=== PATIENT | female | born 1940 | race Hispanic/Latino ===

== ENCOUNTER → 2017-10-11 | Outpatient (CLI) | payer OTHER, MEDICARE | END | disposition home or self-care (01) | LOC: OIH 12:57 | PROVIDERS: ATTEND Family Medicine | DX: M47.895 Other spondylosis, thoracolumbar region (principal) | CPT/HCPCS: 74018 ==

== ENCOUNTER → 2018-02-19 | Outpatient (CLI) | payer OTHER, MEDICARE | END | disposition home or self-care (01) | LOC: RAH 07:54 | PROVIDERS: ATTEND Internal Medicine Gastroenterology | DX: K22.4 Dyskinesia of esophagus (principal); K76.0 Fatty (change of) liver, not elsewhere classified; K21.9 Gastro-esophageal reflux disease without esophagitis; I10 Essential (primary) hypertension | CPT/HCPCS: 74240; 76700 ==

== ENCOUNTER → 2018-06-20 | Outpatient (CLI) | payer OTHER, MEDICARE | END | disposition home or self-care (01) | LOC: OIH 10:19 | PROVIDERS: ATTEND Family Medicine | DX: R05 Cough (principal); R06.02 Shortness of breath; M47.815 Spondylosis without myelopathy or radiculopathy, thoracolumbar region | CPT/HCPCS: 71046 ==

== ENCOUNTER 2018-06-24 17:17 | Emergency (ER) | payer OTHER, MEDICAID ==
[2018-06-24] MEDS ORDERED: ONDANSETRON HCL 4 MG/2 ML VIAL ONE (18:16)
[2018-06-24] MEDS ORDERED: MORPHINE SULFATE 4 MG/1ML SYG ONE (18:16)
[2018-06-24 18:17] LABS: BASOPHILS % (AUTO) 0.7 % (0.0-5.0); EOSINOPHILS % (AUTO) 0.8 % (0.0-8.0); HEMATOCRIT 44.6 % (36-48); LYMPHOCYTES % (AUTO) 11.9 % (21.0-51.0); MEAN CORPUSCULAR HEMOGLOBIN 30.5 pg (27.0-33.0); MEAN CORPUSCULAR HGB CONC 33.1 g/dL (32.0-36.0); MEAN CORPUSCULAR VOLUME 91.9 fL (79-99); MONOCYTES % (AUTO) 9.5 % (3.0-13.0); NEUTROPHILS % (AUTO) 77.1 % (40.0-77.0); PLATELET COUNT (AUTO) 166 K/uL (130-400); RED BLOOD CELL COUNT(AUTO) 4.85 MIL/uL (4.00-5.50); RED CELL DISTRIBUTION WIDTH 13.2 % (11.0-15.5); WHITE BLOOD COUNT (AUTO) 10.3 K/uL (4.8-10.8)
[2018-06-24 18:17] LABS: APPEARANCE,URINE CLEAR (CLEAR); BILIRUBIN,URINE SMALL (NEGATIVE); COLOR,URINE YELLOW (YELLOW); GLUCOSE, URINE (UA) NEGATIVE (NEGATIVE); KETONES,URINE 15 mg/dL (NEGATIVE); LEUKOCYTE ESTERASE ,URINE NEGATIVE (NEGATIVE); NITRATE,URINE NEGATIVE (NEGATIVE); OCCULT BLOOD,URINE MODERATE (NEGATIVE); PH,URINE 5.5 (5.0-8.0); PROTEIN,URINE 30 (NEGATIVE)
[2018-06-24 18:30] LABS: CREATININE 0.8 mg/dL (0.5-1.5); POTASSIUM 3.6 mmol/L (3.5-5.1)
[2018-06-24 18:34] LABS: ALBUMIN 3.8 g/dL (3.5-5.0); BILIRUBIN,TOTAL 0.3 mg/dL (0.2-1.0); TOTAL PROTEIN, SERUM 7.5 g/dL (6.0-8.3)
[2018-06-24 18:55] LABS: RBC,URINE 0-1 /HPF (0-1); WBC,URINE 0-1 /HPF (0-1)
[2018-06-24 18:56] LABS: BACTERIA,URINE Few /HPF (None Seen); MUCUS,URINE Rare LPF (None Seen); SQUAMOUS EPITHELIAL CELL,UR Few /HPF (0-2)
== END 2018-06-24 20:23 | disposition home or self-care (01) ==
LOC: EDH 17:17
DX: R10.84 Generalized abdominal pain (principal); R19.7 Diarrhea, unspecified; R11.2 Nausea with vomiting, unspecified; J45.909 Unspecified asthma, uncomplicated; K29.00 Acute gastritis without bleeding; M19.90 Unspecified osteoarthritis, unspecified site
CPT/HCPCS: 36415; 74176; 80053; 81001; 83690; 85025; 96374; 96375; 99284; J2270; J2405

== ENCOUNTER → 2018-07-23 | Outpatient (CLI) | payer OTHER, MEDICARE | END | disposition home or self-care (01) | LOC: RAH 08:55 | PROVIDERS: ATTEND Family Medicine | DX: I35.1 Nonrheumatic aortic (valve) insufficiency (principal); I70.0 Atherosclerosis of aorta; R79.89 Other specified abnormal findings of blood chemistry | CPT/HCPCS: 93306 ==

== ENCOUNTER → 2018-10-18 | Outpatient (CLI) | payer OTHER, MEDICARE | END | disposition home or self-care (01) | LOC: OIH 10:15 | PROVIDERS: ATTEND Family Medicine | DX: M17.12 Unilateral primary osteoarthritis, left knee (principal); M11.262 Other chondrocalcinosis, left knee; M25.521 Pain in right elbow | CPT/HCPCS: 73080; 73562 ==

== ENCOUNTER → 2019-01-09 | Outpatient (CLI) | payer OTHER, MEDICARE | END | disposition home or self-care (01) | LOC: OIH 08:18 | PROVIDERS: ATTEND Family Medicine | DX: M25.571 Pain in right ankle and joints of right foot (principal) | CPT/HCPCS: 73610 ==

== ENCOUNTER → 2019-10-08 | Outpatient (CLI) | payer OTHER, MEDICARE | END | disposition home or self-care (01) | LOC: RAH 10:41 | PROVIDERS: ATTEND Family Medicine | DX: R35.0 Frequency of micturition (principal); N39.0 Urinary tract infection, site not specified | CPT/HCPCS: 76770 ==

== ENCOUNTER → 2019-12-26 | Outpatient (CLI) | payer OTHER, MEDICARE | END | disposition home or self-care (01) | LOC: SHCH 15:19 | PROVIDERS: ATTEND Internal Medicine Cardiovascular Disease | DX: R94.31 Abnormal electrocardiogram [ECG] [EKG] (principal); R06.00 Dyspnea, unspecified | CPT/HCPCS: 93306 ==

== ENCOUNTER → 2020-01-09 | Outpatient (CLI) | payer OTHER, MEDICARE | END | disposition home or self-care (01) | LOC: SHCH 14:55 | PROVIDERS: ATTEND Internal Medicine Cardiovascular Disease | DX: I83.813 Varicose veins of bilateral lower extremities with pain (principal); R93.6 Abnormal findings on diagnostic imaging of limbs | CPT/HCPCS: 93970 ==

== ENCOUNTER → 2022-05-17 | Outpatient (CLI) | payer OTHER, MEDICARE ==
[~2022-05-17] MED LIST: IOHEXOL-350 50ML VIAL IV ONE
== END | disposition home or self-care (01) ==
LOC: RAH 07:57
PROVIDERS: ATTEND Family Medicine
DX: G31.9 Degenerative disease of nervous system, unspecified (principal); R42 Dizziness and giddiness
CPT/HCPCS: 70470; Q9967

== ENCOUNTER 2022-07-29 12:54 | Observation (INO) | payer OTHER, MEDICARE ==
[~2022-07-29] VITALS: Ht 152.4 cm; Wt 72.8 kg
[2022-07-29 15:02] LABS: BASOPHILS % (AUTO) 0.2 % (0.0-5.0); EOSINOPHILS % (AUTO) 0.1 % (0.0-8.0); LYMPHOCYTES % (AUTO) 8.3 % (21.0-51.0); MEAN CORPUSCULAR HEMOGLOBIN 29.9 pg (27.0-33.0); MEAN CORPUSCULAR HGB CONC 32.3 g/dL (32.0-36.0); MEAN CORPUSCULAR VOLUME 92.8 fL (79-99); MONOCYTES % (AUTO) 14.9 % (3.0-13.0); NEUTROPHILS % (AUTO) 75.8 % (40.0-77.0); PLATELET COUNT (AUTO) 175 K/uL (130-400); RED BLOOD CELL COUNT(AUTO) 4.31 MIL/uL (4.00-5.50); RED CELL DISTRIBUTION WIDTH 13.2 % (11.0-15.5); WHITE BLOOD COUNT (AUTO) 8.9 K/uL (4.8-10.8)
[2022-07-29 15:14] LABS: ALBUMIN 3.2 g/dL (3.5-5.0); CREATININE 0.7 mg/dL (0.5-1.5); POTASSIUM 3.5 mmol/L (3.5-5.1); TOTAL PROTEIN, SERUM 6.3 g/dL (6.0-8.3)
[2022-07-29] MEDS ORDERED: IPRATROPIUM/ALBUTEROL SULFATE 3 ML SOLUTION IH PRN (16:00)
[2022-07-29] MEDS ORDERED: DOCUSATE SODIUM 100 MG CAP PO PRN (16:00)
[2022-07-29] MEDS ORDERED: ACETAMINOPHEN 325 MG TAB PO PRN (16:00)
[2022-07-29] MEDS ORDERED: LACTULOSE 20 GM/30 ML UDCUP PO PRN (16:00)
[2022-07-29] MEDS ORDERED: ONDANSETRON 4MG INJ IVP PRN (16:00)
[2022-07-29] MEDS ORDERED: HYDRALAZINE 20MG/ML VIAL IV PRN (16:00)
[2022-07-29] MEDS ORDERED: ACETAMINOPHEN 325 MG TAB ONE (17:56)
[2022-07-29] MEDS ORDERED: ACETAMINOPHEN 500 MG TABLET PO PRN (19:30)
[2022-07-29] MEDS: LACTATED RINGERS 1000ML 1,000 ML IV SCH (19:30)
[2022-07-29 20:31] LABS: APPEARANCE,URINE CLEAR (CLEAR); BILIRUBIN,URINE NEGATIVE (NEGATIVE); COLOR,URINE LIGHT-YELLOW (YELLOW); GLUCOSE, URINE (UA) NEGATIVE (NEGATIVE); KETONES,URINE NEGATIVE (NEGATIVE); LEUKOCYTE ESTERASE ,URINE NEGATIVE Leu/uL (NEGATIVE); NITRATE,URINE 2+ (NEGATIVE); PH,URINE 7.5 (5.0-8.0); PROTEIN,URINE 20 mg/dL (NEGATIVE); UROBILINOGEN,URINE 0.2 mg/dL (0.2-1.0)
[2022-07-29 20:44] LABS: BACTERIA,URINE FEW /HPF (None Seen); MUCUS,URINE RARE LPF (None Seen); SQUAMOUS EPITHELIAL CELL,UR FEW /HPF (0-2)
[2022-07-30 00:30] VITALS: BP 175/77
[2022-07-30] MEDS ORDERED: FLUO20CA36 PO (00:53)
[2022-07-30] MEDS ORDERED: MONT-39 PO (00:53)
[2022-07-30] MEDS ORDERED: LEVO88CA4 PO (00:53)
[2022-07-30] MEDS ORDERED: LEVO88TA7 PO (00:53)
[2022-07-30 01:17] LABS: CREATINE KINASE, TOTAL 105 U/L (21-232); MYOGLOBIN 33 ng/mL (10-92)
[2022-07-30 04:00] VITALS: BP 163/70
[2022-07-30 05:26] LABS: HEMATOCRIT 38.5 % (36-48); MEAN CORPUSCULAR HEMOGLOBIN 30.4 pg (27.0-33.0); MEAN CORPUSCULAR HGB CONC 32.7 g/dL (32.0-36.0); RED BLOOD CELL COUNT(AUTO) 4.14 MIL/uL (4.00-5.50); WHITE BLOOD COUNT (AUTO) 8.4 K/uL (4.8-10.8)
[2022-07-30 06:01] LABS: CREATININE 0.6 mg/dL (0.5-1.5); MAGNESIUM 1.9 mg/dL (1.80-2.40); PHOSPHORUS 2.8 mg/dL (2.5-4.9); POTASSIUM 3.4 mmol/L (3.5-5.1); THYROID STIMULATING HORMONE 0.41 uIU/mL (0.36-3.74)
[2022-07-30 08:00] VITALS: BP 145/68
[2022-07-30] MEDS: LACTATED RINGERS 1000ML 1,000 ML IV SCH (08:37)
[2022-07-30] MEDS ORDERED: ENOXAPARIN SODIUM 30 MG/0.3 ML SQ SCH (09:00)
[2022-07-30] MEDS ORDERED: ASCORBIC ACID 500 MG TAB PO SCH (09:00)
[2022-07-30] MEDS ORDERED: PANTOPRAZOLE 40 MG TAB DR PO SCH (09:00)
[2022-07-30] MEDS ORDERED: FOLIC ACID 1 MG TABLET PO SCH (09:00)
== END 2022-07-30 10:15 | disposition left against medical advice (07) ==
LOC: EDH 12:54 → EDHIP 19:02 → 3AH 22:26
PROVIDERS: ADMIT Internal Medicine Critical Care Medicine; ATTEND Internal Medicine Critical Care Medicine
DX: U07.1 COVID-19 (principal); J45.909 Unspecified asthma, uncomplicated; I51.7 Cardiomegaly; I10 Essential (primary) hypertension; E78.5 Hyperlipidemia, unspecified; E78.00 Pure hypercholesterolemia, unspecified; Z79.899 Other long term (current) drug therapy
CPT/HCPCS: 96360; 96361 ×2; 99285; 82550 ×6; 83735 ×2; 83874 ×6; 84484 ×7; 80053; 85025; 87077; 87088; 87186; 87804 ×2; 81001; 36415 ×2; 87635; 71045; 93005; 96372; 84443; 84100; 80061; 80048; 83880; 85027; G0378 ×15; C9803; J1650

== ENCOUNTER → 2023-01-16 | Outpatient (CLI) | payer OTHER, MEDICARE ==
[~2023-01-16] MED LIST changes: +FLUO20CA36 PO; -IOHEXOL-350 50ML VIAL IV ONE; +LEVO88CA4 PO; +LEVO88TA7 PO; +MONT-39 PO
[2023-01-16 12:23] LABS: CREATININE 0.6 mg/dL (0.5-1.5)
== END | disposition home or self-care (01) ==
LOC: LAB 08:08
PROVIDERS: ATTEND Internal Medicine Cardiovascular Disease
DX: I11.0 Hypertensive heart disease with heart failure (principal); I50.32 Chronic diastolic (congestive) heart failure
CPT/HCPCS: 36415; 80048; 83880

== ENCOUNTER → 2023-07-10 | Outpatient (CLI) | payer OTHER, MEDICARE ==
[2023-07-10 15:28] LABS: BASOPHILS # (AUTO) 0.04 K/uL (0.00-0.20); BASOPHILS % (AUTO) 0.4 % (0.0-5.0); EOSINOPHILS # (AUTO) 0.03 K/uL (0.00-0.70); EOSINOPHILS % (AUTO) 0.3 % (0.0-8.0); HEMATOCRIT 41.1 % (36-48); IMMATURE GRANULOCYTE ABSOLUTE 0.11 K/uL (0-1); LYMPHOCYTES # (AUTO) 1.1 K/uL (1.0-4.8); LYMPHOCYTES % (AUTO) 12.5 % (21.0-51.0); MEAN CORPUSCULAR HEMOGLOBIN 31.5 pg (27.0-33.0); MEAN CORPUSCULAR HGB CONC 32.1 g/dL (32.0-36.0); MEAN CORPUSCULAR VOLUME 98.1 fL (79-99); MONOCYTES # (AUTO) 0.9 K/uL (0.1-1.0); MONOCYTES % (AUTO) 9.7 % (3.0-13.0); NEUTROPHILS # (AUTO) 6.8 K/uL (1.8-7.7); NEUTROPHILS % (AUTO) 75.9 % (40.0-77.0); PLATELET COUNT (AUTO) 207 K/uL (130-400); RED BLOOD CELL COUNT(AUTO) 4.19 MIL/uL (4.00-5.50); RED CELL DISTRIBUTION WIDTH 12.6 % (11.0-15.5)
[2023-07-10 15:36] LABS: CREATININE 0.8 mg/dL (0.5-1.5); POTASSIUM 4.1 mmol/L (3.5-5.1)
== END | disposition home or self-care (01) ==
LOC: LAB 14:56
PROVIDERS: ATTEND Urology
DX: R31.29 Other microscopic hematuria (principal); N39.0 Urinary tract infection, site not specified; N13.39 Other hydronephrosis
CPT/HCPCS: 36415; 80048; 85025

== ENCOUNTER → 2023-08-01 | Outpatient (CLI) | payer OTHER, MEDICARE ==
[~2023-08-01] MED LIST changes: +IOHEXOL 350 MG/ML 100ML INFUS..BTL IV ONE
== END | disposition home or self-care (01) ==
LOC: RAH 08:12
PROVIDERS: ATTEND Urology
DX: K76.89 Other specified diseases of liver (principal); N39.0 Urinary tract infection, site not specified; N13.39 Other hydronephrosis; R31.29 Other microscopic hematuria; N83.292 Other ovarian cyst, left side
CPT/HCPCS: 74178; Q9967

== ENCOUNTER 2025-02-04 15:20 | Emergency (ER) | payer OTHER, MEDICAID ==
[~2025-02-04] VITALS: Ht 154.9 cm; Wt 70.3 kg
[~2025-02-04 15:20] MED LIST changes: +FLUO-418 PO; -FLUO20CA36 PO; -IOHEXOL 350 MG/ML 100ML INFUS..BTL IV ONE; -LEVO88CA4 PO; +LEVO88CA5 PO
[2025-02-04 16:03] LABS: NUCLEATED RED BLOOD CELLS 0.0 % (0.0-0.19); PLATELET COUNT (AUTO) 246.0 K/uL (130-400); RED BLOOD CELL COUNT(AUTO) 4.39 MIL/uL (4.00-5.50); RED CELL DISTRIBUTION WIDTH 13.4 % (11.0-15.5); WHITE BLOOD COUNT (AUTO) 11.7 K/uL (4.8-10.8)
[2025-02-04 16:12] LABS: CREATININE 0.5 mg/dL (0.5-1.0); GLOMERULAR FILTR. RATE CALC 91.0 mL/min (>90); GLUCOSE,RANDOM 116.0 mg/dL (70-105); SODIUM SERUM 133.0 mmol/L (136-145); UREA NITROGEN, BLOOD 8.0 mg/dL (7-18)
--- NOTE | 2025-02-04 16:18 | ERN ---
General Chief Complaint: Back Pain or Injury Stated Complaint: BACK PAIN RADIATING TO LT RIB CAGE Time Seen by MD: 15:22 Source: family History of Present Illness Initial Comments This patient is an 84-year-old female who presented to the ED with complaint of back pain, chest pain as well as left lower rib pain. History was given by her attendant due to language barrier. Patient starting having back pain a week ago and it has been constant in intensity. She complained of increase in pain severity with deep breathing. Timing/Duration: 1 week Associated Symptoms: chest pain Allergies: Coded Allergies: No Known Allergies (Unverified Allergy, Unknown, 02/08/19) Home Meds Reported Medications Fluoxetine HCl (Fluoxetine HCl) 20 Mg Capsule, 20 MG PO DAILY, CAP 07/30/22 Levothyroxine Sodium (Levothyroxine Sodium) 88 Mcg Tablet, 88 MCG PO AM, TAB 07/30/22 Levothyroxine Sodium (Levothyroxine) 88 Mcg Capsule, 88 MCG PO AM, CAP 07/30/22 Montelukast Sodium (Montelukast Sodium) 10 Mg Tablet, 10 MG PO HS, TAB 07/30/22 Past Medical History Past Medical History: Asthma, GERD, Hypertension, Hypothyroid, IBS Past Surgical History: Surgical History Other: ABD HERNIA REPAIR Constitutional: (-) chills, (-) diaphoresis, (-) fever, (-) malaise, (-) weakness, (-) other documentation Respiratory: (-) cough, (-) orthopnea, (-) short of breath, (-) stridor, (-) wheezing, (-) other documentation Cardiovascular: (+) chest pain, (+) dyspnea on exertion Gastrointestinal/Abdominal: (-) nausea, (-) vomiting, (-) diarrhea, (-) abdominal pain, (-) abdominal distention, (-) constipation, (-) rectal bleeding, (-) dark stool/melena, (-) other documentation Musculoskeletal: (-) Neck pain, (-) back pain, (-) Flank Pain, (-) joint pain, (-) joint swelling, (-) muscle pain, (-) muscle stiffness, (-) gout, (-) other documentation Skin: (+) other documentation (varicose veins in lower extremities) Review of Systems: was completed, & the rest were negative. Nurses Notes Reviewed: Yes Physical Exam General Appearance: (+) no apparent distress Orientation: (+) alert, (+) oriented x 3 Head/Face Trauma: No Ear, Nose, Throat: (+) hearing grossly normal, (+) normal ENT inspection, (+) moist mucous membraine Neck: (+) normal inspection, (+) supple, (+) full range of motion, (+) non- tender Respiratory: (+) chest non-tender Heart: (+) regular Vascular: (+) varicose vein Gastrointestinal: (+) soft, (+) non-tender Extremities: (+) normal range of motion, (+) non-tender, (+) normal inspection Neurologic/Psychiatric: (+) normal speech, (+) no motor defecits, (+) no sensory deficits Results Laboratory and Microbiology Lab and Micro Result Laboratory Tests Test 02/04/25 15:58 White Blood Count 11.7 K/uL (4.8-10.8) H Red Blood Count 4.39 MIL/uL (4.00-5.50) Hemoglobin 13.4 g/dL (12.0-16.0) Hematocrit 40.0 % (36-48) Mean Corpuscular Volume 91.1 fL (79-99) Mean Corpuscular Hemoglobin 30.5 pg (27.0-33.0) Mean Corpuscular Hemoglobin Concent 33.5 g/dL (32.0-36.0) Red Cell Distribution Width 13.4 % (11.0-15.5) Platelet Count 246 K/uL (130-400) Mean Platelet Volume 10.2 fL (7.5-10.5) Nucleated Red Blood Cells 0.0 % (0.0-0.19) Sodium Level 133 mmol/L (136-145) L Potassium Level 4.1 mmol/L (3.5-5.1) Chloride Level 99 mmol/L (101-111) L Carbon Dioxide Level 27 mmol/L (21-32) Blood Urea Nitrogen 8 mg/dL (7-18) Creatinine 0.5 mg/dL (0.5-1.0) Glomerular Filtration Rate Calc 91 mL/min (>90) Random Glucose 116 mg/dL (70-105) H Total Calcium 8.2 mg/dL (8.5-10.1) L Total Bilirubin 0.5 mg/dL (0.2-1.0) Direct Bilirubin 0.2 mg/dL (0.0-0.3) Aspartate Amino Transf (AST/SGOT) 23 U/L (10-37) Alanine Aminotransferase (ALT/SGPT) 24 U/L (12-78) Alkaline Phosphatase 114 U/L (50-136) Total Creatine Kinase 74 U/L (21-232) # Troponin I High Sensitivity 45 ng/L (4-50) B-Type Natriuretic Peptide 377 pg/mL (0-100) H Total Protein 6.9 g/dL (6.0-8.3) Albumin 3.4 g/dL (3.5-5.0) L Labs Reviewed?: Yes EKG/XRAY/US/CT/MRI EKG Comment 02/04/2025 15:57:35 Rate 85. Sinus rhythm MI 143 QT 395 [place]: P 6, QRS 10, T 50 CT Scan Comment REASON: Chest pain with Hx of bronchitis and rib fracture. ORDERING PHYSICIAN: TIMOTHY PLAZA MD PROCEDURE: CHEST WO - CT CHEST W/O CONTRAST EXAMINATION: CT Chest without intravenous contrast CLINICAL HISTORY: Patient presents with chest pain and a history of bronchitis and rib fracture. TECHNIQUE: Axial CT of the chest without intravenous contrast. Multiplanar reformations were generated and reviewed. COMPARISON: CT chest dated August 08, 2012 and chest radiograph dated February 04, 2025. FINDINGS: LUNGS: Bibasilar dependent atelectasis. No pulmonary mass. The lungs are otherwise clear. PLEURAL SPACES: No pneumothorax. No pleural effusion. CARDIOVASCULAR: Mild cardiomegaly. No significant pericardial effusion. LYMPH NODES: Enlarged precarinal lymph node measuring 2.3 cm. Few subcentimeter calcified precarinal and right hilar lymph nodes, largest measuring 0.7 cm in the precarinal region. UPPER ABDOMEN: The upper abdominal solid organs are unremarkable. BONES: Old healed fractures of the right seventh rib (series 3, images 41-43) and eighth rib (series 3, image 49). No acute osseous abnormality. DIAPHRAGM: Elevated left hemidiaphragm. IMPRESSION: Enlarged precarinal lymph node measuring 2.3 cm. Few calcified subcentimeter precarinal and right hilar lymph nodes. Elevated left hemidiaphragm. Mild cardiomegaly. Bibasilar dependent atelectasis. Old healed right seventh and eighth rib fractures. No acute intrathoracic abnormality.d /[place] DICTATED BY: KRIS ROBLES MD DATE: 02/04/252007 ELECTRONICALLY SIGNED BY: KRIS ROBLES MD DATE: 02/04/252007 MDM MDM: Differential diagnosis: Shortness of breath, rib pain, Rationale: Tests considered and ordered secondary to shared decision making include: Previous outside records reviewed: Old ER visits. Risk of complication and/or morbidity or mortality of patient management: None Medications-Per medication reconciliation Need for hospitalization: Patient does not meet criteria for hospitalization. Need for emergency major/minor surgery: No There are no social concerns with this patient. Prescription drug management Prescriptions will include symptomatic care Patient's prior external medical records from other ER visits were reviewed by me as indicated. Prior testing and results from previous visits were reviewed. Prior tests were taken into account with medical decision making and resource utilization, independent historian/historians were used to obtain complete medical history. I independently interpreted the test that were performed, results were reviewed by me and considered findings on radiology if ordered. Medical management and examination interpretation discussions were had by me with other qualified healthcare professionals as indicated for the patient's care. ED Course Orders Procedure Category Date Status Time Cbc Without LAB 02/04/25 Complete Differential 15:45 Basic Metabolic Panel LAB 02/04/25 Complete 15:45 Hepatic Function Panel LAB 02/04/25 Complete 15:45 Troponin I High LAB 02/04/25 Complete Sensitivity 15:45 Creatine Kinase, Total LAB 02/04/25 Complete 15:45 B-Type Natriuretic LAB 02/04/25 Complete Peptide 15:45 Chest 2vws RAD 02/04/25 Resulted 15:45 12 Lead Ekg Tracing- EKG 02/04/25 Complete Technical 15:45 Ondansetron 4mg Inj PHA 02/04/25 Complete (Zofran 4mg Inj) 16:00 Ipratropium/Albuterol PHA 02/04/25 Complete Neb (Duoneb) 17:00 Respiratory RT 02/04/25 Transmitted Communication 16:31 Ct Chest W/O Contrast CT 02/04/25 Resulted 17:01 Ketorolac PHA 02/04/25 Complete Tromethamine 30mg/Ml 20:00 Current Medications Medications (Trade) Dose Ordered Sig/Romaine Route PRN Reason Start Time Stop Time Status Last Admin Dose Admin Albuterol (DUOneb) 1 UDVIAL ONCE ONCE IH 02/04/25 17:00 02/04/25 17:01 DC 02/04/25 16:53 Ketorolac Tromethamine (toRADol) 30 mg ONCE ONCE IM 02/04/25 20:00 02/04/25 20:01 DC 02/04/25 19:47 Ondansetron HCl (zoFRAN 4MG INJ) 4 mg ONCE ONCE IVP 02/04/25 16:00 02/04/25 16:01 DC Vital Signs Date Time Temp Pulse Resp B/P (MAP) Pulse Ox O2 Delivery O2 Flow Rate FiO2 02/04/25 19:52 98.4 86 18 164/75 98 Room Air* 0 21 02/04/25 16:54 83 20 02/04/25 15:25 97.9 80 18 189/78 97 Room Air 0 DX & DISP Disposition: Discharge Departure Impression: Primary Impression: Musculoskeletal pain Additional Impression: 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 The patient is now being discharged to home and should follow up with the primary care physician or the specialist as directed by the ER staff. Follow-up with primary care provider in 1 to 2 days. Take medications as directed here in the emergency room. Okay to continue home medications unless otherwise discussed during your visit in the emergency room today. Return to your nearest emergency room if symptoms worsen or if there is no improvement. Call 911 if you need immediate assistance. Take Tylenol or Motrin [id number] as needed and if no contraindications are present. Increase oral hydration. A wound culture or urine culture was ordered here in the emergency room department please follow-up with primary care provider and advise them to get repeat ports from our facility. If you had any Jeet wrap/splints that were applied here, please do not remove them until you see your primary care or specialty. Referrals: SHANT ABDI MD (PCP) TIMOTHY PLAZA MD Feb 04, 2025 16:18 SAUL JACKSON MD Feb 04, 2025 19:00 KULDIP AU MD Feb 04, 2025 19:37
[2025-02-04 16:21] LABS: ASPARTATE AMINOTRANSFERASE 23.0 U/L (10-37); CREATINE KINASE, TOTAL 74.0 U/L (21-232); TOTAL PROTEIN, SERUM 6.9 g/dL (6.0-8.3)
[2025-02-04 16:54] VITALS: PULSE 83; RESP 20
--- NOTE | 2025-02-04 17:27 | HMCIMG ---
EXAM: CR Chest, 2 View. CLINICAL HISTORY: Pleuritic chest pain with Hx of bronchitis COMPARISON: None provided. FINDINGS: LUNGS: No active infiltrate Increased central lung markings consistent with patient's history of bronchitis PLEURAL SPACES: No evidence of pleural effusion or pneumothorax. MEDIASTINUM: Cardiac silhouette is prominent BONES: No acute osseous abnormality. IMPRESSION: 1. Cardiac silhouette is prominent 2. No active infiltrate 3. Increased central lung markings consistent with patient's history of bronchitis /[place]
--- NOTE | 2025-02-04 18:48 | EKG ---
[facility] Test Date: 2025-02-04 Test Time: 15:57:35 Pat Name: SUNDEEP MONTERO Department: ED Room: Gender: F [employer]oter: [id number] : 1940 Requested By: TIMOTHY ANGULO Order Number: [id number] Reading MD: Robert Cardenas Measurements Intervals [place] Rate: 85 P: 6 [place]: 143 QRS: 10 QRSD: 73 T: 50 QT: 395 QTc: 469 Interpretive Statements Sinus rhythm Compared to ECG 07/29/2022 13:27:18 No significant changes Electronically Signed On 02-05-2025 15:34:53 CDT by Robert Cardenas Please click the below link to view image of tracing.
--- NOTE | 2025-02-04 18:53 | NUR ---
PT MOVED FROM LOBBY INTO FAST TRACK AT THIS TIME
--- NOTE | 2025-02-04 19:09 | HMCIMG ---
EXAMINATION: CT Chest without intravenous contrast CLINICAL HISTORY: Patient presents with chest pain and a history of bronchitis and rib fracture. TECHNIQUE: Axial CT of the chest without intravenous contrast. Multiplanar reformations were generated and reviewed. COMPARISON: CT chest dated August 08, 2012 and chest radiograph dated February 04, 2025. FINDINGS: LUNGS: Bibasilar dependent atelectasis. No pulmonary mass. The lungs are otherwise clear. PLEURAL SPACES: No pneumothorax. No pleural effusion. CARDIOVASCULAR: Mild cardiomegaly. No significant pericardial effusion. LYMPH NODES: Enlarged precarinal lymph node measuring 2.3 cm. Few subcentimeter calcified precarinal and right hilar lymph nodes, largest measuring 0.7 cm in the precarinal region. UPPER ABDOMEN: The upper abdominal solid organs are unremarkable. BONES: Old healed fractures of the right seventh rib (series 3, images 41-43) and eighth rib (series 3, image 49). No acute osseous abnormality. DIAPHRAGM: Elevated left hemidiaphragm. IMPRESSION: Enlarged precarinal lymph node measuring 2.3 cm. Few calcified subcentimeter precarinal and right hilar lymph nodes. Elevated left hemidiaphragm. Mild cardiomegaly. Bibasilar dependent atelectasis. Old healed right seventh and eighth rib fractures. No acute intrathoracic abnormality.d /[place]
[2025-02-04 19:52] VITALS: BP 164/75; PULSE 86; RESP 18; TEMP 98.4; O2SAT 98
== END 2025-02-04 20:35 | disposition home or self-care (01) ==
LOC: EDH 15:20
DX: M47.24 Other spondylosis with radiculopathy, thoracic region (principal); J45.909 Unspecified asthma, uncomplicated; K21.9 Gastro-esophageal reflux disease without esophagitis; I10 Essential (primary) hypertension; E03.9 Hypothyroidism, unspecified; Z98.890 Other specified postprocedural states; Z79.899 Other long term (current) drug therapy
CPT/HCPCS: 99285; 71250; 71046; 82550; 80076; 84484; 80048; 83880; 85027; 36415; 96372; 93005; 94640; J1885